=== PATIENT | male | born 1970 | race Caucasian/White ===

== ENCOUNTER 2021-12-18 17:29 | Inpatient (IN) | payer OTHER ==
[2021-12-18 17:50] VITALS: BMI 20.9
[2021-12-18] MEDS ORDERED: KETOROLAC TROMETHAMINE 15 MG/ML VIAL IVPUSH ONE (18:23)
[2021-12-18] MEDS ORDERED: ACETAMINOPHEN 325 MG TABLET (FP) PO ONE (18:24)
[2021-12-18] MEDS ORDERED: VANCOMYCIN 1 GM in D5W (PRE-DOCKED) 1,000 MG/250 ML IVPB ONE (18:35)
[2021-12-18] MEDS ORDERED: KETOROLAC TROMETHAMINE 15 MG/ML VIAL ONE (18:36)
[2021-12-18] MEDS ORDERED: ACETAMINOPHEN 325 MG TABLET (FP) ONE (18:36)
[2021-12-18] MEDS ORDERED: VANCOMYCIN 1 GRAM (PRE-DOCKED) 1,000 MG/250 ML BAG IVPB ONE (19:12)
[2021-12-18] MEDS ORDERED: LIDOCAINE HCL 1%, 10 MG/ML (50 mL VIAL) SQ ONE (19:57)
[2021-12-18] MEDS ORDERED: LIDOCAINE 1%/EPI 1:100000 (20 ML MULTI DOSE VIAL) ONE (20:09)
[2021-12-18] MEDS ORDERED: LIDOCAINE 1%/EPI 1:100000 (20 ML MULTI DOSE VIAL) IJ ONE (20:20)
[2021-12-19 00:14] LABS: BASO % 0.6 % (0-2.0); EOS % 2.1 % (0-4.5); HEMATOCRIT 28.7 % (35.4-49); HEMOGLOBIN 9.2 GM/dL (11.7-16.9); LYMPH % 17.4 % (8-40); MCH 24.4 pg (25.7-33.7); MCHC 32.1 g/dl (32.0-35.9); MEAN CELL VOLUME 76.2 fl (80-96); MEAN PLT VOLUME 7.4 fl (7.5-11.1); MONO % 10.7 % (3.8-10.2); NEUT % 69.2 % (42.8-82.8); PLATELET COUNT 262 10^3/uL (134-434); RBC 3.77 M/mm3 (4.00-5.60)
[2021-12-19 00:35] LABS: ALBUMIN 2.4 g/dl (3.4-5.0); BLOOD UREA NITROGEN 17.2 mg/dL (7-18)
[2021-12-19 00:38] LABS: CREATININE 0.8 mg/dL (0.55-1.3)
[2021-12-19 00:40] LABS: BILIRUBIN,TOTAL 0.2 mg/dL (0.2-1); TOT PROT 6.2 g/dl (6.4-8.2)
[2021-12-19] MEDS: CLINDAMYCIN 600MG PREMIX IVPB 600 MG/50 ML BAG IVPB SCH ×2 (06:00→11:10)
[2021-12-19] MEDS ORDERED: CLINDAMYCIN 600MG PREMIX IVPB 600 MG/50 ML BAG IVPB ONE (06:20)
[2021-12-19 07:15] LABS: BASO % 0.8 % (0-2.0); EOS % 2.5 % (0-4.5); HEMOGLOBIN 9.9 GM/dL (11.7-16.9); LYMPH % 20.6 % (8-40); MCH 24.8 pg (25.7-33.7); MCHC 31.9 g/dl (32.0-35.9); MEAN CELL VOLUME 77.8 fl (80-96); MEAN PLT VOLUME 9.2 fl (7.5-11.1); MONO % 9.3 % (3.8-10.2); NEUT % 66.8 % (42.8-82.8); PLATELET COUNT 238 10^3/uL (134-434); RBC 3.99 M/mm3 (4.00-5.60); RDW 14.5 % (11.9-15.9); WHITE BLOOD COUNT 7.7 K/mm3 (4.0-10.0)
[2021-12-19 08:00] LABS: CALCIUM 8.1 mg/dL (8.5-10.1)
[2021-12-19 08:01] LABS: ALBUMIN 2.4 g/dl (3.4-5.0); BLOOD UREA NITROGEN 16.9 mg/dL (7-18)
[2021-12-19 08:04] LABS: CREATININE 0.7 mg/dL (0.55-1.3)
[2021-12-19 08:06] LABS: BILIRUBIN,TOTAL 0.4 mg/dL (0.2-1); TOT PROT 6.4 g/dl (6.4-8.2)
[2021-12-19] MEDS ORDERED: methaDONE HCL 10 MG TABLET (FOR DETOX USE ONLY) PO SCH ×2 (10:30)
[2021-12-19] MEDS ORDERED: methaDONE HCL 10 MG TABLET ONE (10:54)
[2021-12-19] MEDS ORDERED: methaDONE HCL 40 MG DISPERSABLE TABLET ONE (10:54)
[2021-12-19] MEDS: methaDONE 80 MG, methaDONE 20 MG PO SCH (11:10)
[2021-12-19] MEDS: ENOXAPARIN NA (PORCINE) 40 MG/0.4 ML DISP.SYRIN SQ SCH (11:10)
[2021-12-19] MEDS ORDERED: DEXTROSE 5%-WATER - 50 ML IVPB ONE (15:45)
[2021-12-19] MEDS ORDERED: PIPERACILLIN/TAZOBACTAM 3.375 GM VIAL IVPB ONE (15:45)
[2021-12-19] MEDS: PIPERACILLIN/TAZOB 3.375 GM 3.375 GM in DEXTROSE 5%-WATER - 50 ML IVPB SCH ×3 (15:49→17:52)
[2021-12-19] MEDS: VANCOMYCIN PREMIX 1.5 GM 1,500 MG/300 ML BAG IVPB SCH (17:51)
[2021-12-20] MEDS ORDERED: ACETAMINOPHEN 325 MG TABLET (FP) PO ONE (00:17)
[2021-12-20] MEDS ORDERED: DEXTROSE 5%-WATER - 50 ML IVPB ONE ×3 (00:36→14:32)
[2021-12-20] MEDS ORDERED: PIPERACILLIN/TAZOBACTAM 3.375 GM VIAL IVPB ONE ×3 (00:36→14:32)
[2021-12-20] MEDS: PIPERACILLIN/TAZOB 3.375 GM 3.375 GM in DEXTROSE 5%-WATER - 50 ML IVPB SCH ×3 (02:06→18:18)
[2021-12-20] MEDS ORDERED: methaDONE HCL 10 MG TABLET ONE (05:42)
[2021-12-20] MEDS ORDERED: methaDONE HCL 40 MG DISPERSABLE TABLET ONE (05:42)
[2021-12-20] MEDS: methaDONE 80 MG, methaDONE 20 MG PO SCH (05:55)
[2021-12-20] MEDS: ENOXAPARIN NA (PORCINE) 40 MG/0.4 ML DISP.SYRIN SQ SCH (09:14)
[2021-12-20 10:06] LABS: BASO % 0.9 % (0-2.0); EOS % 4.8 % (0-4.5); HEMATOCRIT 33.3 % (35.4-49); HEMOGLOBIN 10.6 GM/dL (11.7-16.9); LYMPH % 29.9 % (8-40); MCH 24.5 pg (25.7-33.7); MCHC 31.9 g/dl (32.0-35.9); MEAN CELL VOLUME 76.6 fl (80-96); MEAN PLT VOLUME 9.2 fl (7.5-11.1); MONO % 10.7 % (3.8-10.2); NEUT % 53.7 % (42.8-82.8); PLATELET COUNT 300 10^3/uL (134-434); RBC 4.34 M/mm3 (4.00-5.60); RDW 14.5 % (11.9-15.9); WHITE BLOOD COUNT 6.2 K/mm3 (4.0-10.0)
[2021-12-20 10:19] LABS: CALCIUM 8.3 mg/dL (8.5-10.1)
[2021-12-20 10:20] LABS: ALBUMIN 2.5 g/dl (3.4-5.0); BLOOD UREA NITROGEN 18.1 mg/dL (7-18)
[2021-12-20 10:22] LABS: CREATININE 0.9 mg/dL (0.55-1.3)
[2021-12-20 10:24] LABS: BILIRUBIN,TOTAL 0.4 mg/dL (0.2-1); TOT PROT 6.8 g/dl (6.4-8.2)
[2021-12-20] MEDS: VANCOMYCIN PREMIX 1.5 GM 1,500 MG/300 ML BAG IVPB SCH (16:39)
[2021-12-20] MEDS: BENZOCAINE/MENTH/CETYLPYRD CL 1 EACH LOZENGE MM PRN ×2 (18:18→22:57)
[2021-12-20] MEDS ORDERED: ACETAMINOPHEN 1000 MG/100 ML BAG IVPB PRN (23:38)
[2021-12-21] MEDS ORDERED: PIPERACILLIN/TAZOBACTAM 3.375 GM VIAL IVPB ONE ×3 (00:40→16:36)
[2021-12-21] MEDS ORDERED: DEXTROSE 5%-WATER - 50 ML IVPB ONE ×3 (00:40→16:36)
[2021-12-21] MEDS: PIPERACILLIN/TAZOB 3.375 GM 3.375 GM in DEXTROSE 5%-WATER - 50 ML IVPB SCH ×3 (01:21→17:55)
[2021-12-21] MEDS ORDERED: methaDONE HCL 10 MG TABLET ONE (06:24)
[2021-12-21] MEDS ORDERED: methaDONE HCL 40 MG DISPERSABLE TABLET ONE (06:25)
[2021-12-21] MEDS: methaDONE 80 MG, methaDONE 20 MG PO SCH (06:27)
[2021-12-21] MEDS: ENOXAPARIN NA (PORCINE) 40 MG/0.4 ML DISP.SYRIN SQ SCH (09:21)
[2021-12-21] MEDS ORDERED: POLYETHYLENE GLYCOL (HEALTHYLAX) 3350 17 GM PACKET PO PRN (12:19)
[2021-12-21] MEDS: VANCOMYCIN PREMIX 1.5 GM 1,500 MG/300 ML BAG IVPB SCH (18:05)
[2021-12-21] MEDS: BENZOCAINE/MENTH/CETYLPYRD CL 1 EACH LOZENGE MM PRN (21:16)
[2021-12-22] MEDS ORDERED: PIPERACILLIN/TAZOBACTAM 3.375 GM VIAL IVPB ONE ×3 (00:25→17:25)
[2021-12-22] MEDS ORDERED: DEXTROSE 5%-WATER - 50 ML IVPB ONE ×3 (00:26→17:25)
[2021-12-22] MEDS: PIPERACILLIN/TAZOB 3.375 GM 3.375 GM in DEXTROSE 5%-WATER - 50 ML IVPB SCH ×3 (01:04→17:49)
[2021-12-22] MEDS: BENZOCAINE/MENTH/CETYLPYRD CL 1 EACH LOZENGE MM PRN (01:53)
[2021-12-22] MEDS ORDERED: methaDONE HCL 10 MG TABLET ONE (06:26)
[2021-12-22] MEDS ORDERED: methaDONE HCL 40 MG DISPERSABLE TABLET ONE (06:27)
[2021-12-22] MEDS: methaDONE 80 MG, methaDONE 20 MG PO SCH (06:28)
[2021-12-22] MEDS: ENOXAPARIN NA (PORCINE) 40 MG/0.4 ML DISP.SYRIN SQ SCH (09:03)
[2021-12-22] MEDS: VANCOMYCIN PREMIX 1.5 GM 1,500 MG/300 ML BAG IVPB SCH (16:33)
[2021-12-23] MEDS ORDERED: DEXTROSE 5%-WATER - 50 ML IVPB ONE ×2 (00:59→09:04)
[2021-12-23] MEDS ORDERED: PIPERACILLIN/TAZOBACTAM 3.375 GM VIAL IVPB ONE ×2 (00:59→09:04)
[2021-12-23] MEDS: PIPERACILLIN/TAZOB 3.375 GM 3.375 GM in DEXTROSE 5%-WATER - 50 ML IVPB SCH ×2 (01:46→09:27)
[2021-12-23 05:38] VITALS: PULSE 60
[2021-12-23] MEDS ORDERED: methaDONE HCL 10 MG TABLET ONE (05:41)
[2021-12-23] MEDS ORDERED: methaDONE HCL 40 MG DISPERSABLE TABLET ONE (05:42)
[2021-12-23] MEDS: methaDONE 80 MG, methaDONE 20 MG PO SCH (05:42)
[2021-12-23] MEDS: ENOXAPARIN NA (PORCINE) 40 MG/0.4 ML DISP.SYRIN SQ SCH (09:27)
[2021-12-23 10:08] LABS: CALCIUM 8.9 mg/dL (8.5-10.1)
[2021-12-23 10:09] LABS: BLOOD UREA NITROGEN 14.6 mg/dL (7-18)
[2021-12-23 10:12] LABS: BILIRUBIN,TOTAL 0.2 mg/dL (0.2-1); TOT PROT 7.4 g/dl (6.4-8.2)
[2021-12-23 10:13] LABS: CREATININE 0.9 mg/dL (0.55-1.3)
[2021-12-23 10:16] LABS: ALBUMIN 2.8 g/dl (3.4-5.0)
[2021-12-23 15:48] VITALS: BP 101/60; TEMP 98.1
[2021-12-23] MEDS: VANCOMYCIN PREMIX 1.5 GM 1,500 MG/300 ML BAG IVPB SCH (18:01)
== END 2021-12-23 17:30 | disposition home or self-care (01) | DRG 383 ==
LOC: JER 17:29 → JERBED 22:13 → J7W 12-19 08:03
PROVIDERS: ADMIT Internal Medicine
DX: L03.113 Cellulitis of right upper limb (principal); F11.20 Opioid dependence, uncomplicated; R78.81 Bacteremia; F39 Unspecified mood [affective] disorder; F17.210 Nicotine dependence, cigarettes, uncomplicated
CPT/HCPCS: 36415; 71045-TC-FY; 73090-TC-RT-FY; 73630-TC-RT-FY; 80053; 83735; 84100; 85025; 87040; 93005; 93010; 99285-25; C9803-CS; G0480; U0003; U0005